=== PATIENT | female | born 1955 | race Two or more races ===

== ENCOUNTER 2018-07-18 22:38 | Emergency (ER) | payer OTHER ==
[2018-07-19] MEDS: ONDANSETRON (ODT) 4 MG TAB ODT (00:21)
[2018-07-19] MEDS: MECLIZINE 12.5 MG TAB PO (00:21)
== END 2018-07-19 01:43 | disposition home or self-care (01) ==
LOC: FTE 22:38
DX: R42 Dizziness and giddiness (principal); R11.10 Vomiting, unspecified
CPT/HCPCS: 70450; 99284-25